=== PATIENT | male | born 1975 | race Two or more races ===

== ENCOUNTER 2019-01-27 01:19 | Emergency (ER) | payer MEDICAID ==
[~2019-01-27] VITALS: Ht 165.1 cm; Wt 90.7 kg
[2019-01-27 01:27] VITALS: BP 134/93
[2019-01-27] MEDS ORDERED: TETRACAINE HCL 0.5% OPTH(EYE) SOLN 4ML EACHEYE ONE (03:30)
[2019-01-27] MEDS ORDERED: FLUORESCEIN SOD 1 MG TEST STRIP EACHEYE ONE (03:30)
[2019-01-27] MEDS ORDERED: GENTAMICIN OPTH sol 0.3% 5ml EACHEYE ONE (03:45)
== END 2019-01-27 04:11 | disposition home or self-care (01) ==
LOC: ER 01:25
DX: H11.001 Unspecified pterygium of right eye (principal); H57.11 Ocular pain, right eye